=== PATIENT | female | born 1930 | race Caucasian/White ===

== ENCOUNTER → 2017-08-25 | Outpatient (CLI) | payer OTHER ==
[~2017-08-25] MED LIST: ALEVE220 MG PO; ALPRAZOLAM 0.0.25 M1 PO; ALPRAZOLAM PO; BONIVA150 MG; BONIVA150 MG PO; CENTRUM SILVER1 EAC1 PO; CENTRUM SILVER1 EAC4 PO; FLUOXETINE HCL20 M1 PO; HYDROCODON-ACE1 EAC7 PO; KLOR-CON 1010 MEQ PO; LEVOTHROID PO; LEVOTHROID100 MC1 PO; LEVOTHROID88 MCG PO; LIDODERM 5%1 PATCH TOP; PROTONIX40 M2 PO; PROZAC 10 MG CA10 M1 PO; SIMVASTATIN10 MG PO; TOVIAZ4 MG PO; TOVIAZ8 MG PO; TRIAMTERENE-HC1 EAC3 PO; VITAMIN D31000 UNI2 PO; VITAMINC500 PO
== END ==
LOC: RAD 07-14 13:32
DX: Z12.31 Encounter for screening mammogram for malignant neoplasm of breast (principal)

== ENCOUNTER → 2018-10-10 | Outpatient (CLI) | payer OTHER | LOC: BC 13:28 | DX: Z12.31 Encounter for screening mammogram for malignant neoplasm of breast (principal) ==